=== PATIENT | male | born 2000 | race Caucasian/White ===

== ENCOUNTER 2019-04-07 10:02 | Emergency (ER) | payer OTHER, SELFPAY ==
[2019-04-07 10:05] VITALS: BP 140/74; PULSE 78; RESP 18; TEMP 36.8; O2SAT 98
--- NOTE | 2019-04-07 10:44 | ED.GENADULT ---
HPI - General Adult General Stated complaint: 18YO male w/ 3-5 day h/o congestion associated w/ SEALS and a single episode of vomiting this morning. Patient admits there is URI going around in school. Here for eval w/ mother. Related Data Allergies Allergy/AdvReac Type Severity Reaction Status Date / Time No Known Allergies Allergy Unknown Unverified 07/09/16 19:28 Review of Systems Review of Systems: All systems reviewed & are unremarkable except as noted in HPI and below Constitutional: Constitutional: Reports as per HPI, Denies chills, Denies fever(s), Reports headache(s) and Denies weakness Eyes: Eyes: Reports no additional eye complaints ENT: Reports headache(s), Reports nasal congestion, Reports post nasal drip and Reports sinus pressure Cardiovascular: Cardiovascular: Reports no additional cardiovascular complaints Respiratory: Respiratory: Reports no additional respiratory complaints Gastrointestinal: Gastrointestinal: Reports no additional gastrointestinal complaints and Reports vomiting Genitourinary: Genitourinary: Reports no additional male genitourinary complaints Musculoskeletal: Musculoskeletal: Reports no additional musculoskeletal complaints Integumentary/Breasts: Skin/Breast: Reports system reviewed and no additional complaints, except as docu Neurologic: Reports system reviewed and no additional complaints, except as documented Psychiatric: Psychiatric: Reports no additional psychiatric complaints Endocrine: Endocrine: Reports no additional endocrine complaints Exam Const: General: cooperative and healthy appearing Nutritional Appearance: average body habitus Orientation/consciousness: oriented to person Limitations: no limitations HENMT: Head: normal to inspection Face and sinus: sinus tenderness Mouth: Yes oropharynx normal and Yes moist mucous membranes Throat: postnasal drainage Eyes: General: appearance normal, both eyes and all related structures Neck: Neck: normal visual inspection, full ROM, no lymphadenopathy, no meningeal signs and trachea midline Chest: Chest palpation & inspection: normal inspection of the chest Resp: Effort & Inspection: normal respiratory effort Auscultation: clear to auscultation bilaterally Cardio: Jugular venous distension: no JVD Course Vital Signs Vital signs: Vital Signs Temperature 36.8 C 04/07/19 10:05 Pulse Rate 78 04/07/19 10:05 Respiratory Rate 18 04/07/19 10:05 Blood Pressure 140/74 04/07/19 10:05 Pulse Oximetry 98 04/07/19 10:05 Temperature 36.8 C 04/07/19 10:05 Pulse Rate 78 04/07/19 10:05 Respiratory Rate 18 01/15/20 10:05 Blood Pressure 140/74 04/07/19 10:05 Pulse Oximetry 98 04/07/19 10:05 Medical Decision Making Vital Signs Vital Signs: Vital Signs Temperature 36.8 C 04/07/19 10:05 Pulse Rate 78 04/07/19 10:05 Respiratory Rate 18 04/07/19 10:05 Blood Pressure 140/74 04/07/19 10:05 Pulse Oximetry 98 04/07/19 10:05 Temperature 36.8 C 04/07/19 10:05 Pulse Rate 78 04/07/19 10:05 Respiratory Rate 18 04/07/19 10:05 Blood Pressure 140/74 04/07/19 10:05 Pulse Oximetry 98 04/07/19 10:05 Critical Care Time Critical Care Time Critical Care Time: No Discharge Plan Discharge Clinical Impression: Upper respiratory infection, acute Sinusitis, acute Qualifiers: Sinusitis location: pansinusitis Recurrence: not specified as recurrent Qualified Code(s): J01.40 - Acute pansinusitis, unspecified Patient Disposition: Home, Self-Care Condition: Stable Instructions: Antibiotic Form Prescriptions: New cefuroxime axetil 500 mg tablet 500 mg PO BID Qty: 20 RF: 0 cetirizine-pseudoephedrine [Zyrtec-D] 5-120 mg tablet extended release 12 hr 1 tablet PO BID Qty: 20 RF: 0 Follow-up/Referrals: Barby,FLY Arciniega [Primary Care Provider] - Time of Disposition: 11:39
--- NOTE | 2019-04-07 11:02 | PC.NURSE ---
Report to Raoul Sweet
[2019-04-07 11:17] LABS: Influenza Control Valid (Valid)
[2019-04-07 11:43] VITALS: RESP 14
== END 2019-04-07 11:44 | disposition home or self-care (01) ==
PROVIDERS: Emergency Provider Family Medicine; PCP Physician Assistant
DX: J06.9 Acute upper respiratory infection, unspecified (principal)
CPT/HCPCS: 87081; 87804; 87880; 99283

== ENCOUNTER 2022-04-25 17:36 | Emergency (ER) | payer OTHER, SELFPAY ==
[2022-04-25 17:37] VITALS: BP 126/76; PULSE 104; RESP 18; TEMP 36.6; O2SAT 100
--- NOTE | 2022-04-25 20:46 | PC.NURSE ---
called for triage x3 no answer. pt. called for repeat vitals, no answer
--- NOTE | 2022-04-25 20:57 | PC.NURSE ---
moe dpt. for triage and repeat VS no answer
== END 2022-04-25 22:08 | disposition left against medical advice (07) ==
PROVIDERS: PCP Physician Assistant
DX: R59.9 Enlarged lymph nodes, unspecified (principal)
CPT/HCPCS: 99199